=== PATIENT | female | born 1975 | race Caucasian/White ===

== ENCOUNTER 2019-01-08 11:21 | Emergency (ER) | payer OTHER ==
[2019-01-08 11:48] VITALS: RESP 18
[2019-01-08] MEDS ORDERED: DIPH,PERTUS(ACELL)TETVAC-LF 0.5 ML VIAL IM ONE (11:53)
[2019-01-08] MEDS ORDERED: LIDOCAINE 1% INJ 10MG/ML (20 ML MDV) SQ ONE (12:03)
--- NOTE | 2019-01-08 13:00 | ED ---
Wound/Laceration HPI - General Chief Complaint: Wound/Laceration Stated Complaint: Laceration-[facility] Time Seen by Provider: 01/08/19 11:55 Source: patient Mode of arrival: ambulatory Limitations: no limitations - History of Present Illness Initial Comments: 43-year-old female denies past medical history presenting today for chief complaint of right second digit laceration. Patient states she was taking out the garbage while at work when a top of a can broke through cutting her finger. She states she felt was superficial however could possibly use sutures and she needed a tetanus updated. He denies any limitations in range of motion at the digits she denies any weakness. Denies any other area of injury denies fall. Remaining review of systems negative including numbness tingling loss sensation pallor or coolness of the extremity, recent fever, chills, shortness of breath, chest pain, back pain, abdominal pain, nausea or vomiting, numbness or tingling, dysuria or hematuria, constipation or diarrhea, headaches or visual changes, or any other complaints. Upon arrival pt appears well, applying pressure to area. - Related Data Home Medications Medication Instructions Recorded Confirmed Ibuprofen [Motrin Ib] 400 mg PO Q6H PRN 01/08/19 01/08/19 Allergies Allergy/AdvReac Type Severity Reaction Status Date / Time No Known Allergies Allergy Verified 01/08/19 13:04 Review of Systems ROS Statement: Those systems with pertinent positive or pertinent negative responses have been documented in the HPI. ROS Other: All systems not noted in ROS Statement are negative. Past Medical History Past Medical History: No Reported History History of Any Multi-Drug Resistant Organisms: None Reported Additional Past Surgical History / Comment(s): Thyroid removal Past Psychological History: No Psychological Hx Reported Smoking Status: Current every day smoker Past Alcohol Use History: Occasional Past Drug Use History: Cocaine General Exam - General Exam Comments Initial Comments: General: The patient is awake and alert, in no distress, and does not appear acutely ill. Eye: Pupils are equal, round and reactive to light, extra-ocular movements are intact. No nystagmus. There is normal conjunctiva bilaterally. No signs of icterus. Ears, nose, mouth and throat: There are moist mucous membranes and no oral lesions. Neck: The neck is supple, there is no tenderness or JVD. Cardiovascular: There is a regular rate and rhythm. No murmur, rub or gallop is appreciated. Respiratory: Lungs are clear to auscultation, respirations are non-labored, breath sounds are equal. No wheezes, stridor, rales, or rhonchi. Gastrointestinal: [Soft, non-distended, non-tender abdomen without masses or organomegaly noted. There is no rebound or guarding present. No CVA tenderness. Bowel sounds are unremarkable.] Musculoskeletal: Normal ROM, no tenderness. Strength 5/5. Sensation intact. Pulses equal bilaterally 2+. Neurological: A&O x 3. CN II-XII intact, There are no obvious motor or sensory deficits. Coordination appears grossly intact. Speech is normal. Skin: Skin is warm and dry and no rashes> Superifical laceration right second digit, distal to PIP joint, pt is able to fully range at the MTP, PIP AND DIP joints of the hands equal in comparison b/l including affected joint. No exposure of tendon or underlying structures. Psychiatric: Cooperative, appropriate mood & affect, normal judgment. Limitations: no limitations Course Vital Signs 01/08/19 01/08/19 11:44 13:13 Temperature 98.8 F 98.1 F Pulse Rate 85 80 Respiratory 18 18 Rate Blood Pressure 148/98 132/78 O2 Sat by Pulse 98 98 Oximetry Procedures - Laceration Laceration #1 Consent Obtained: verbal consent Indication: laceration Site: hand Size (cm): 1 Description: linear Depth: simple, single layer Anesthetic Used: lidocaine 1% Anesthesia Technique: local infiltration Amount (mls): 1 Pre-repair: wound explored, irrigated extensively, deep structures intact Type of Sutures: nylon Size of Sutures: 5-0 Number of Sutures: 2 Technique: simple, interrupted Patient Tolerated Procedure: well, no complications Additional Comments: Wound cleansed with iodine and irrigated extensively before repair. Wound edges aligned well. pt tolerated procedure well. Medical Decision Making - Medical Decision Making Appearing 43-year-old female presenting today for chief complaint of finger laceration. Finger laceration appears superficial however was an area of hypertension and range of motion. No exposure of underlying structure including tendon. No limitations in range of motion, no noted weakness or sensation deficits. Patient neurovascularly intact. Bleeding controlled. Wound repaired. Tetanus updated. Patient discharged in stable condition appearing well discussed case with attending provider Dr. Justice. Disposition Clinical Impression: Finger laceration Disposition: HOME SELF-CARE Condition: Good Instructions (If sedation given, give patient instructions): Care For Your Stitches (ED), Finger Laceration (ED) Additional Instructions: Please use topical medication as discussed. Please follow-up for suture removal in the ER in 7 days. Please return to emergency room if the symptoms increase or worsen or for any other concerns. Is patient prescribed a controlled substance at d/c from ED?: No Referrals: Lance Cash MD [Primary Care Provider] - 1-2 days Time of Disposition: 13:00
[2019-01-08 13:14] VITALS: BP 132/78; PULSE 80; TEMP 98.1
== END 2019-01-08 13:13 | disposition home or self-care (01) ==
LOC: EC 11:21
DX: S61.210A Laceration without foreign body of right index finger without damage to nail, initial encounter (principal); F17.200 Nicotine dependence, unspecified, uncomplicated; Z23 Encounter for immunization; W26.8XXA Contact with other sharp object(s), not elsewhere classified, initial encounter; Y92.69 Other specified industrial and construction area as the place of occurrence of the external cause; Y99.0 Civilian activity done for income or pay
CPT/HCPCS: 90715; 99282; 90471; J2001